=== PATIENT | female | born 1985 | race African-American/Black ===

== ENCOUNTER → 2016-10-05 | Outpatient (CLI) | payer OTHER ==
[2016-01-11 23:58] VITALS: BP 121/72
--- NOTE | 2016-10-07 17:59 | MRI ---
HISTORY: KNEE PAIN. EXAM: NON CONTRAST MRI EXAM OF THE RIGHT KNEE. TECHNIQUE: Multisequence and multiplanar T1 and T2 weighted sequences of the right knee were obtaine d without the administration of IV paramagnetic contrast at 1.5 K[place]. COMPARISON: None available. FINDINGS: The MR examination demonstrates no appreciable patellofemoral or femorotibial articular ca rtilage loss nor full-thickness cartilage loss in the weight-bearing sector of the medial or lateral knee compartments. No high-grade osteochondral defects are seen. There is no MR evidence for osteoc hondritis dessicans. The PCL is intact, but there is a Grade I strain of the otherwise intact ACL. N o displaced medial or lateral meniscal tear is seen. The IT band and posterior-lateral corner struct ures are unremarkable. The lateral collateral ligament complex presents no focal abnormalities. The MCL is intact. The extensor mechanism of the knee is intact. There is a trace knee joint fluid witho ut visible loose bodies seen. Examination of the bone marrow demonstrates no evidence of an aggressi ve bone marrow lesion. There is no altered bone marrow signal or significant degenerative disease ob served. No other region of abnormal bone marrow signal is seen to suggest an acute fracture, bone ma rrow contusion, or aggressive marrow lesion. No concerning soft tissue masses are seen. No other bon y or soft tissue abnormalities are seen. No susceptibility artifact is seen to suggest a foreign bod y. IMPRESSION: Low grade ACL sprain appreciated. Oblique femoral trochlea with slight lateral patellar tracking wit hout evidence for a patellar dislocation. These findings can be seen with mild/developing patellofem oral friction syndrome, however. Please correlate physically. Reported By:
== END ==
LOC: RAD 10:12
PROVIDERS: ATTEND Nurse Practitioner Family
DX: M25.561 Pain in right knee (principal); M17.11 Unilateral primary osteoarthritis, right knee
CPT/HCPCS: 73721

== ENCOUNTER → 2017-03-11 | Outpatient (CLI) | payer OTHER ==
[2016-01-11 23:58] VITALS: BP 121/72
--- NOTE | 2017-03-12 07:20 | MRI ---
History: Ankle pain. Exams: Non-contrast MRI examination of the right ankle. Technique: Multi sequence and multiplanar MR images of the right ankle joint are performed at 1.5 [place] without the benefit of IV contrast. Comparison: None available. 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 Emanating from the anterior as pect of the distal tibial cortex with intramedullary connection (image number 6 of series 601) & inte rposed between the extensor tendons, laterally, there is a bony lesion which measures 1.8 x 1 cm; thi s most likely reflects an exostosis or osteochondroma without aggressive features. No evidence for ad ventitial bursitis. No other bony lesions are seen. There is no MRI evidence for malignant degenerati on or malignant transformation. No acute ankle injuries are seen. The MR examination demonstrates an intact anterior talofibular ligament, calcaneofibular and posterior talofibular ligament. Both the an terior and posterior tibiofibular ligaments appear intact. The peroneal longus and brevis tendons are intact without tear, displacement, or subluxation seen. The posterior tibial, FHL, and FDL tendons a ppear intact without injury, abnormal signal, or displacement. Medially, the deltoid ligament complex is intact without abnormal signal. The extensor ankle tendons also show normal signal without eviden ce for tear, injury, or displacement. The Achilles tendon is intact without tear or retraction. The p lantar fascia is within normal limits. There is no plantar muscular atrophy seen to suggest Carmona ne uropathy. The Lisfranc joint and ligament both appear intact. Examination of the bone marrow demonstr ates no evidence of an aggressive bone marrow lesion. There is no acute fracture, bony contusion, or evidence of an inflammatory arthropathy. No stress fracture is appreciated. No abnormal bone marrow s ignal is seen, otherwise, to suggest osteomyelitis. There is no focal fluid collection seen to sugges t an abscess formation. There is no significant osteoarthritis seen. No focal joint erosions are seen . No aggressive soft tissue mass is seen. No other bony abnormalities are seen. No soft tissue hemato ma is seen. There is no susceptibility artifact seen to suggest a metallic foreign body in the soft t issues. No other abnormalities are seen. IMPRESSION: Emanating from the anterior aspect of the distal tibial cortex with intramedullary connection (image number 6 of series 601) & interposed between the extensor tendons, laterally, there is a bony lesion which measures 1.8 x 1 cm; this most likely reflects an exostosis or osteochondroma without aggressiv e features. No evidence for adventitial bursitis. No other bony lesions are seen. There is no MRI connor dence for malignant degeneration or malignant transformation of this lesion. No acute ankle injuries are seen. 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 Reported By:
== END ==
LOC: RAD 14:59
PROVIDERS: ATTEND Orthopaedic Surgery
DX: D16.21 Benign neoplasm of long bones of right lower limb (principal)
CPT/HCPCS: 73721

== ENCOUNTER → 2017-03-14 | Outpatient (CLI) | payer OTHER ==
[2016-01-11 23:58] VITALS: BP 121/72
[2017-03-14 15:53] LABS: BASOPHILS # (AUTO) 0.1 X10^3/uL (0.0-0.1); BASOPHILS % (AUTO) 0.5 % (0.2-1.0); EOSINOPHILS # (AUTO) 0.4 x10^3/uL (0.0-0.2); EOSINOPHILS % (AUTO) 3.3 % (0.9-2.9); HEMATOCRIT 37.8 % (36.0-47.0); HEMOGLOBIN 12.1 g/dL (12.0-16.0); LYMPHOCYTES # (AUTO) 3.7 X10^3/uL (1.3-2.9); LYMPHOCYTES % (AUTO) 28.6 % (21.0-51.0); MEAN CORPUSCULAR HEMOGLOBIN 23.3 pg (27.0-34.0); MEAN CORPUSCULAR HGB CONC 31.9 g/dL (33.0-35.0); MEAN CORPUSCULAR VOLUME 73.2 fL (80.0-100.0); MEAN PLATELET VOLUME 9.5 fL (7.4-11.0); MONOCYTES # (AUTO) 0.9 x10^3/uL (0.3-0.8); MONOCYTES % (AUTO) 7.2 % (0.0-13.0); NEUTROPHILS # (AUTO) 7.8 x10^3/uL (2.2-4.8); NEUTROPHILS % (AUTO) 60.4 % (42.0-75.0); PLATELET COUNT 167 X10^3/uL (150.0-450.0); RED BLOOD COUNT 5.17 X10^6/uL (3.5-5.4); RED CELL DISTRIBUTION WIDTH 16.3 % (11.6-16.5); WHITE BLOOD COUNT 12.8 X10^3/uL (3.6-10.0)
[2017-03-14 16:00] LABS: BLOOD UREA NITROGEN 15 mg/dL (7-18); CALCIUM 9.4 mg/dL (8.5-10.1); CARBON DIOXIDE 25.7 mmol/L (21-32); CHLORIDE 103 mmol/L (98-107); CREATININE 0.94 mg/dL (0.55-1.02); SODIUM 137 mmol/L (136-145); eGFR BLACK RACES > 60 (>60); eGFR NON BLACK RACES > 60 (>60)
[2017-03-14 16:10] LABS: ANISOCYTOSIS SLIGHT; HYPOCHROMASIA SLIGHT; PLATELET MORPHOLOGY COMMENT NORMAL (NORMAL)
== END ==
LOC: RAD 15:36
PROVIDERS: ATTEND Orthopaedic Surgery
DX: Z01.818 Encounter for other preprocedural examination (principal); D16.21 Benign neoplasm of long bones of right lower limb
CPT/HCPCS: 36415; 80048; 85025

== ENCOUNTER → 2017-08-29 | Outpatient (CLI) | payer OTHER ==
[2016-01-11 23:58] VITALS: BP 121/72
--- NOTE | 2017-08-29 13:21 | RAD ---
HISTORY: Right shoulder pain. No history of trauma. Study: Right shoulder: Three views Comparison: None Findings: No acute bony or joint abnormalities are identified. IMPRESSION: 1. Negative radiographs of the right shoulder. Reported By:
--- NOTE | 2017-08-29 13:22 | RAD ---
Examination: Chest x-ray. Clinical History: Chest pain. Technique: PA and lateral views of the chest were obtained. Comparison: 01/12/2016. Findings: The cardiac and mediastinal contours are within normal limits. No pneumothorax or pleural effusion is noted. The lungs appear clear. Mild degenerative changes are noted in the spine. No acute osseous abnormality is noted. Impression: 1. No acute disease. Reported By:
== END ==
LOC: RAD 12:41
PROVIDERS: ATTEND Internal Medicine
DX: M25.511 Pain in right shoulder (principal); R07.89 Other chest pain
CPT/HCPCS: 71046; 73030